=== PATIENT | male | born 1955 | race Caucasian/White ===

== ENCOUNTER 2021-10-12 00:45 | Emergency (ER) | payer MEDICARE, BC ==
[~2021-10-12] VITALS: Ht 182.9 cm; Wt 122.5 kg
[2021-10-12] MEDS ORDERED: GLIM2 PO (01:19)
[2021-10-12] MEDS ORDERED: TAMS.4ER PO (01:20)
[2021-10-12] MEDS ORDERED: FINA5 PO (01:20)
[2021-10-12] MEDS ORDERED: ZOCOR20 MG PO (01:20)
[2021-10-12] MEDS ORDERED: METO50 PO (01:21)
[2021-10-12] MEDS ORDERED: KATERZIA1 MG/1 ML (01:21)
[2021-10-12] MEDS ORDERED: HYDCHL25 PO (01:22)
[2021-10-12] MEDS ORDERED: OMEP20ER PO (01:22)
[2021-10-12] MEDS ORDERED: GLUC500 (01:23)
[2021-10-12] MEDS ORDERED: FISH OIL 1,2001 EAC7 (01:23)
[2021-10-12] MEDS ORDERED: MULTI-VITAMIN1 EAC2 PO (01:23)
[2021-10-12 01:28] LABS: BASOPHILS ABSOLUTE AUTO 0.02 K/mm3 (0.00-0.23); BASOPHILS PERCENT AUTO 0 % (0-2); EOSINOPHILS ABSOLUTE AUTO 0.19 K/mm3 (0.00-0.68); EOSINOPHILS PERCENT AUTO 3 % (0-6); Hematocrit 42.1 % (37.0-53.0); Hemoglobin 14.5 g/dL (13.5-17.5); IMMATURE GRAN ABSOLUTE AUTO 0.05 K/mm3 (0.00-0.10); IMMATURE GRAN PERCENT AUTO 1 % (0-1); LYMPHOCYTES ABSOLUTE AUTO 2.33 K/mm3 (0.84-5.20); LYMPHOCYTES PERCENT AUTO 39 % (21-46); MONOCYTES ABSOLUTE AUTO 0.57 K/mm3 (0.16-1.47); MONOCYTES PERCENT AUTO 10 % (4-13); Mean Corpuscular HGB 31.3 pg (26.0-34.0); Mean Corpuscular HGB Conc 34.4 g/dL (31.5-36.5); Mean Corpuscular Volume 91 fL (80-100); Mean Platelet Volume 8.8 fL (9.1-12.4); NEUTROPHILS ABSOLUTE AUTO 2.85 K/mm3 (1.96-9.15); NEUTROPHILS PERCENT AUTO 47 % (41-73); Platelet Count 175 K/mm3 (150-400); RDW Coefficient Variation 12.7 % (11.7-14.2); RDW Standard Deviation 41.4 fL (35.1-46.3); Red Blood Cell Count 4.64 M/mm3 (4.30-5.90); White Blood Cell Count 6.01 K/mm3 (4.00-11.30)
[2021-10-12 01:30] LABS: Source, Urine Clean Catch
[2021-10-12 01:32] LABS: Bilirubin, Urine Neg (Neg); Blood, Urine Neg (Neg); Glucose Qualitative, Urine 3+ (Neg); Ketones, Urine 1+ (Neg); Leukocyte Esterase, Urine Neg (Neg); Nitrite, Urine Neg (Neg); Protein, Urine Neg (Neg); Urobilinogen, Urine NORM (Normal)
[2021-10-12 01:35] LABS: Color, Urine Yellow (P-Yellow)
[2021-10-12 01:36] LABS: Appearance, Urine Clear (Clear)
[2021-10-12 01:40] LABS: Albumin, Blood 3.6 g/dL (3.4-5.0); Albumin/Globulin Ratio 0.9 (0.8-1.8); Bilirubin, Total 0.7 mg/dL (0.1-1.0); Bun/Creatinine Ratio 24.4 (12.0-20.0); Calcium, Blood 9.4 mg/dL (8.5-10.1); Creatinine, Blood 1.23 mg/dL (0.60-1.20); Globulin, Blood 3.9 g/dL (2.2-4.0); Potassium, Blood 4.1 mmol/L (3.5-5.5); Total Protein, Blood 7.5 g/dL (6.4-8.2)
[2021-10-12] MEDS ORDERED: Robaxin750 MG PO (03:58)
[2021-10-12] MEDS ORDERED: ACET500 PO (03:58)
[2021-10-12] MEDS ORDERED: OXYC5 PO (03:58)
== END 2021-10-12 04:22 | disposition home or self-care (01) ==
LOC: ER 00:45
PROVIDERS: Student in an Organized Health Care Education/Training Program
DX: S33.5XXA Sprain of ligaments of lumbar spine, initial encounter (principal); S39.012A Strain of muscle, fascia and tendon of lower back, initial encounter; E11.22 Type 2 diabetes mellitus with diabetic chronic kidney disease; I12.9 Hypertensive chronic kidney disease with stage 1 through stage 4 chronic kidney disease, or unspecified chronic kidney disease; N18.9 Chronic kidney disease, unspecified; E78.5 Hyperlipidemia, unspecified; Z79.899 Other long term (current) drug therapy; X58.XXXA Exposure to other specified factors, initial encounter
CPT/HCPCS: 74176; 80053; 81003; 85025; 96374; 99284-25; A9270; J1885